=== PATIENT | female | born 1950 ===

== ENCOUNTER 2021-01-10 16:19 | Inpatient (IN) | payer SELFPAY ==
[~2021-01-10] VITALS: Ht 165.1 cm; Wt 65.0 kg
[2021-01-10] MEDS ORDERED: dilTIAZem 125mg/125ml BAG KIT 125 ML IV ONE (16:30)
[2021-01-10] MEDS ORDERED: SODIUM CHLORIDE 0.9% 1,000 ML IV ONE (16:30)
[2021-01-10] MEDS ORDERED: dilTIAZem 25 MG/5 ML VIAL IV ONE (16:30)
[2021-01-10 17:54] LABS: Basophils # (auto) 0 10 ^3/uL (0-0.2); Basophils % (auto) 0.3 % (0.0-2.0); Eosinophils # (auto) 0 10 ^3/uL (0-0.8); Eosinophils % (auto) 0.4 % (0.0-7.0); Hematocrit 41.7 % (36.0-46.0); Hemoglobin 13.4 g/dL (12.2-16.2); Lymphocytes # (auto) 2.3 10 ^3/uL (0.4-5.4); Mean Corpuscular Hgb Conc. 32.1 g/dL (32.0-36.0); Mean Corpuscular Volume 96.6 fL (80.0-100.0); Monocytes # (auto) 0.8 10 ^3/uL (0-1.3); Monocytes % (auto) 8.4 % (0.0-12.0); Neutrophils # (auto) 6.1 10 ^3/uL (1.6-8.6); Neutrophils % (auto) 65.9 % (37.0-80.0); Nucleated Red Blood Cells % 0.1 %; Red Blood Cells 4.31 10^6/uL (4.0-5.20); Red Cell Distribution Width 13.6 % (11.8-14.3); White Blood Cell 9.3 10^3/uL (4.4-10.8)
[2021-01-10 18:06] LABS: Albumin 3.6 g/dL (3.4-5.0); Calcium 7.7 mg/dL (8.5-10.1); Potassium 3.8 mmol/L (3.5-5.1)
[2021-01-10] MEDS ORDERED: ACETAMINOPHEN 325 MG TAB PO ONE (18:15)
[2021-01-10 18:17] LABS: BUN/Creatinine Ratio 24.1; Bilirubin, Total 0.9 mg/dL (0.2-1.0); Total Protein 6.9 g/dL (6.4-8.2)
[2021-01-10] MEDS ORDERED: ACETAMINOPHEN 325 MG TAB PO PRN (18:45)
[2021-01-10] MEDS ORDERED: DOCUSATE SOD 100 MG CAP PO PRN (18:45)
[2021-01-10] MEDS ORDERED: NITROGLYCERIN 0.4 MG SL TAB SL PRN (18:45)
[2021-01-10] MEDS ORDERED: AMIODARONE HCL 150 MG in D5W 5% 100 ML IV ONE (18:45)
[2021-01-10] MEDS ORDERED: MORPHINE SULFATE INJECTION 2 MG/ML SYRG IV PRN ×2 (18:45)
[2021-01-10] MEDS ORDERED: ONDANSETRON HCL 4 MG/2 ML VIAL IV PRN (18:45)
[2021-01-10] MEDS ORDERED: AMIODARONE 450mg/250ml AE 250 ML IV SCH (19:00)
[2021-01-10 19:39] LABS: Cholesterol 113 mg/dL (< 200)
[2021-01-10 19:42] LABS: HDL Cholesterol 33 mg/dL (40-59); LDL Cholesterol 77 mg/dL (< 100); Triglycerides 144 mg/dL (< 150)
[2021-01-10] MEDS: SODIUM CHLORIDE 0.9% 1,000 ML IV SCH (20:08)
[2021-01-10] MEDS ORDERED: DEXTROSE (50%) 50ML SYRG IV PRN (20:15)
[2021-01-10] MEDS: ACCU-CHEK COMFORT CURVE STRIP VI SCH (22:31)
[2021-01-10] MEDS: InsuLIN REG 1unit/0.01ml Soln (100units/ml) SC SCH (22:32)
[2021-01-10] MEDS: FUROSEMIDE 40 MG/4 ML VIAL IV SCH (22:32)
[2021-01-10] MEDS: HEPARIN SODIUM (PORCINE) 5000 UNITS/ML 1ML VIAL SC SCH (22:37)
[2021-01-10] MEDS: HYDROcodone-ACET 5/325MG TAB PO PRN (22:48)
[2021-01-11] MEDS: InsuLIN REG 1unit/0.01ml Soln (100units/ml) SC SCH ×2 (07:00→11:23)
[2021-01-11] MEDS: ACCU-CHEK COMFORT CURVE STRIP VI SCH ×2 (07:29→11:23)
[2021-01-11 10:10] LABS: Urine Bacteria NONE SEEN /hpf (None Seen); Urine Blood Negative /uL (Negative); Urine Hyaline Cast FEW /lpf (0 - 2); Urine Mucus FEW (None Seen); Urine Specific Gravity 1.027 (1.001-1.035); Urine WBC 17 /hpf (0 - 5)
[2021-01-11] MEDS: FUROSEMIDE 40 MG/4 ML VIAL IV SCH ×2 (11:16→22:17)
[2021-01-11] MEDS: HEPARIN SODIUM (PORCINE) 5000 UNITS/ML 1ML VIAL SC SCH ×2 (11:18→22:19)
[2021-01-11] MEDS: SODIUM CHLORIDE 0.9% 1,000 ML IV SCH (11:24)
[2021-01-11] MEDS ORDERED: APIXABAN 5 MG TAB PO ONE (12:30)
[2021-01-11] MEDS ORDERED: AMIODARONE HCL 200 MG TAB PO ONE (12:30)
[2021-01-11 16:41] LABS: BUN/Creatinine Ratio 17.8; Calcium 7.5 mg/dL (8.5-10.1); Potassium 3.7 mmol/L (3.5-5.1)
[2021-01-11] MEDS ORDERED: MAGNESIUM SULFATE 1GM/100ML 100 ML IV ONE (18:30)
[2021-01-11] MEDS ORDERED: LEVOPOW XX (21:14)
[2021-01-11] MEDS ORDERED: METO-289 PO (21:32)
[2021-01-11] MEDS ORDERED: SPIR25TA8 PO (21:32)
[2021-01-11] MEDS ORDERED: [UNRECOGNIZED DRUG - CODE] OR (21:32)
[2021-01-11 22:00] VITALS: BP 117/68
[2021-01-11] MEDS ORDERED: AMIODARONE HCL 200 MG TAB PO SCH (22:00)
[2021-01-11] MEDS: APIXABAN 5 MG TAB PO SCH (22:17)
[2021-01-11] MEDS: METOPROLOL TARTRATE 25 MG TAB PO SCH (22:18)
[2021-01-11] MEDS: HYDROcodone-ACET 5/325MG TAB PO PRN (22:19)
[2021-01-12] MEDS: HYDROcodone-ACET 5/325MG TAB PO PRN (03:31)
[2021-01-12] MEDS ORDERED: LEVOTHYROXINE SODIUM 50 MCG TAB PO ONE (08:45)
[2021-01-12 08:58] VITALS: BP 122/81
[2021-01-12] MEDS: APIXABAN 5 MG TAB PO SCH (09:14)
[2021-01-12] MEDS: FUROSEMIDE 40 MG/4 ML VIAL IV SCH (09:15)
[2021-01-12] MEDS: METOPROLOL TARTRATE 25 MG TAB PO SCH (09:15)
[2021-01-12] MEDS ORDERED: AMIODARONE HCL 200 MG TAB PO SCH (10:00)
[2021-01-12] MEDS ORDERED: LEVOTHYROXINE SODIUM 100 MCG TAB PO ONE (10:15)
[2021-01-12 11:20] LABS: Free T3 2.1 pg/mL (2.3-4.2); Free T4 (Free Thyroxine) 1.56 ng/dL (0.89-1.76)
[2021-01-12 13:00] VITALS: BP 105/71
[2021-01-12 16:27] VITALS: BP 126/80
[2021-01-13] MEDS ORDERED: LEVOTHYROXINE SODIUM 50 MCG TAB PO SCH (07:00)
== END 2021-01-12 16:20 | disposition home or self-care (01) | DRG 280 ==
LOC: ER 16:19 → EDBD 16:19 → TELE 18:43 → TELE-CENTR 01-11 20:22
PROVIDERS: ADMIT Family Medicine; ATTEND Internal Medicine
DX: I47.1 Supraventricular tachycardia (principal); I21.A1 Myocardial infarction type 2; I50.33 Acute on chronic diastolic (congestive) heart failure; N17.0 Acute kidney failure with tubular necrosis; K90.9 Intestinal malabsorption, unspecified; I48.91 Unspecified atrial fibrillation; I11.0 Hypertensive heart disease with heart failure; E03.9 Hypothyroidism, unspecified; R74.01 Elevation of levels of liver transaminase levels; Z20.822 Contact with and (suspected) exposure to COVID-19; Z85.850 Personal history of malignant neoplasm of thyroid; Z87.442 Personal history of urinary calculi; Z98.84 Bariatric surgery status
CPT/HCPCS: 36415; 71045; 80048; 80053; 80061; 81001; 82040; 82962; 83036; 83735; 83880; 84439; 84443; 84481; 84484; 85025; 85379; 87086; 87426; 93005; 93306; 96361; 96365; 96375; 99291; G0378; J7060